=== PATIENT | female | born 1970 | race American Indian/Alaskan Native ===

== ENCOUNTER 2017-03-03 01:08 | Emergency (ER) | payer BC ==
[2017-03-03 01:39] VITALS: TEMP 98.5
--- NOTE | 2017-03-03 01:54 | C.PDOC ---
History Of Present Illness 46 yo female w/ PMHx of HTN come in for evaluation of cold sx for past 3 days associated with low fever, chills, runny nose, productive cough with clear sputum. Pt admits, similar sx in family members who was tested (+) Influenza. Otherwise, pt denies high fever, drooling, trismus, headache, dizziness, neck pain, CP, SOB, wheezing, abd. pain, V/D, back pain, UTI sx, rash. Ambulate to Ed for evaluation, not in any apparent distress Time Seen by Provider: 03/03/17 01:53 Chief Complaint (Nursing): Flu-like Symptoms History Per: Patient Onset/Duration Of Symptoms: Gradual Past Medical History Reviewed: Historical Data, Nursing Documentation, Vital Signs Vital Signs: Last Vital Signs Temp 98.5 F 03/03/17 03:20 Pulse 87 03/03/17 03:20 Resp 18 03/03/17 03:20 BP 153/90 H 03/03/17 03:20 Pulse Ox 97 03/03/17 03:20 - Medical History PMH: HTN Denies: Chronic Kidney Disease Surgical History: Appendectomy (2009) Family History: States: Unknown Family Hx - Social History Hx Tobacco Use: Yes Hx Alcohol Use: Yes (Socially) Hx Substance Use: No - Immunization History Hx Tetanus Toxoid Vaccination: No Hx Influenza Vaccination: No Hx Pneumococcal Vaccination: No Review Of Systems Except As Marked, All Systems Reviewed And Found Negative. Constitutional: Negative for: Fever, Chills, Malaise ENT: Positive for: Nose Discharge, Nose Congestion, Throat Pain. Negative for: Ear Discharge Cardiovascular: Negative for: Chest Pain Respiratory: Positive for: Cough, Sputum. Negative for: Shortness of Breath, Wheezing Gastrointestinal: Negative for: Nausea, Vomiting, Abdominal Pain, Diarrhea Genitourinary: Negative for: Dysuria, Frequency Musculoskeletal: Negative for: Neck Pain Skin: Negative for: Rash Neurological: Negative for: Weakness, Numbness, Altered Mental Status, Headache , Dizziness Physical Exam - Physical Exam Appears: Well, Non-toxic, No Acute Distress Skin: Normal Color, Warm, Dry, No Rash Head: Normacephalic Eye(s): bilateral: PERRL Ear(s): Bilateral: Normal Nose: No Flaring, Discharge (scant clear B/L) Oral Mucosa: Moist, No Drooling Throat: Normal, No Erythema, No Exudate, No Drooling Neck: Trachea Midline, Supple, Other ((-) meningeal sign) Cardiovascular: Rhythm Regular Respiratory: No Decreased Breath Sounds, No Accessory Muscle Use, No Stridor, Wheezing (scattered B/L wheezings, expiratory) Gastrointestinal/Abdominal: Soft, No Tenderness, No Distention, No Guarding Back: Normal Inspection, No CVA Tenderness Extremity: Normal ROM, No Pedal Edema, No Deformity, No Swelling Neurological/Psych: Oriented x3, Normal Speech ED Course And Treatment O2 Sat by Pulse Oximetry: 96 Pulse Ox Interpretation: Normal Progress Note: On re-evaluation, pt is afebrile, hemodynamicaly stable. Non- toxic. AMbulatory in ED with stable gait. PUlseOx 96% RA. Neck: SUpple, (-) meningeal sign. ENT: No acute findings. neck: SUpple, (-) meningeal sign. LUngs: CTA B/L, BS equal B/L. Abd: benign. Neuorlogicaly intact. Pt has clinical findings c/w bronchitis, hx of asthma.. Pt advised. ref. to [facility] in 2-3 days for re-eavl. return if any new changes. Disposition Counseled Patient/Family Regarding: Diagnosis, Need For Followup, Rx Given - Disposition Referrals: [facility] [Outside] Disposition: HOME/ ROUTINE Disposition Time: 02:26 Condition: STABLE Additional Instructions: Encourage fluids Take medication as prescribed Follow up with PMD in 2-3 days for re-evaluation. Return to ED if any worsening or new changes. Prescriptions: Albuterol HFA [Ventolin HFA 90 mcg/actuation (8 g)] 1 puff IH Q6 #1 inhaler Azithromycin 1 tab PO DAILY #4 tab Prednisone [Deltasone] 20 mg PO DAILY #3 tablet Promethazine/Codeine [Phenergan/Codeine Oral Syrup] 5 ml PO TID #60 ml Instructions: Acute Bronchitis (ED) Forms: [facility] ([place]), Work Excuse - Clinical Impression Clinical Impression: Bronchitis, Asthma
[2017-03-03] MEDS ORDERED: Albuterol-Ipratrop 3 mg / 0.5 (3 ml) UD IH STA (02:13)
[2017-03-03] MEDS ORDERED: Promethazine/Cod 6.25mg-10mg/5ml Syr UD PO STA (02:14)
[2017-03-03] MEDS ORDERED: Albuterol-Ipratrop 3 mg / 0.5 (3 ml) UD ONE (02:54)
[2017-03-03] MEDS ORDERED: Promethazine/Cod 6.25mg-10mg/5ml Syr UD ONE (03:12)
[2017-03-03 03:21] VITALS: BP 153/90; PULSE 87; RESP 18
[2017-03-03 06:56] VITALS: O2SAT 96
== END 2017-03-03 03:21 | disposition home or self-care (01) ==
LOC: C.ER 01:08
DX: J45.909 Unspecified asthma, uncomplicated (principal)